=== PATIENT | male | born 1985 | race African-American/Black ===

== ENCOUNTER 2019-01-10 20:01 | Emergency (ER) | payer MEDICAID ==
[~2019-01-10] VITALS: Ht 182.9 cm; Wt 78.0 kg
[2019-01-10] MEDS ORDERED: IBUPROFEN 600MG TABLET PO ONE (22:45)
[2019-01-10 23:51] VITALS: BP 118/62
== END 2019-01-11 | disposition home or self-care (01) ==
LOC: ER 20:01
DX: M25.511 Pain in right shoulder (principal); F17.200 Nicotine dependence, unspecified, uncomplicated; F12.10 Cannabis abuse, uncomplicated; Z98.890 Other specified postprocedural states
CPT/HCPCS: 73030; 99283